=== PATIENT | female | born 1940 | race Caucasian/White ===

== ENCOUNTER → 2017-05-31 14:41 | Outpatient (CLI) | payer MEDICARE, SELFPAY ==
--- NOTE | 2017-05-31 14:52 | XR_ITS ---
DEXA SCAN.-BONE DENSITY STUDY HIPS AND LUMBAR SPINE HISTORY: Postmenopausal female 76-year-old postmenopausal female low calcium intake. TECHNIQUE: DEXA scan hip and lumbar spine The most complete data summary and color graphic presentation of the today's ( and any prior ) DEXA findings are available in PACS. Definition and treatment guidelines included. COMPARISON: May 2014 =LUMBAR SPINE:== Levoscoliosis with hypertrophic changes most evident along the right margin of the L-spine at L 2/3 Overall lumbar spine with Normal bone density L1 vertebral body demonstrates the lowest T score -1.0 with BMD1.013 g/cm sq Overall mean lumbar L1-L4 T score -0.3 with BMD1.138 g/cm sq . Prior May 2014 DEXA the mean T score -0.8 with BMD was1.083g/cm sq Thus when comparing today's study to the prior exam there's been a 5.1% % increasing mean bone density at the lumbar spine. This studies appear fairly comparable visually. ==HIPS: == Overall normal bone density at hips Femoral neck density is best predictor of hip fracture risk . Right femoral neck demonstrates the lowest T score -1.1 with BMD0.891 g/cm sq . Averaging all regions yields today's overall Hip Mean T score -0.9 with BMD0.899 g/cm sq . Prior May 2014 DEXA overall hip T score -0.8 with mean BMD0.907 g/cm sq Thus this reflects a 0.9 % decrease in overall mean bone density at the hips in the interval. IMPRESSION========= 1. LUMBAR SPINE: Overall normal bone density lumbar spine with mean T score = -0.1 Borderline osteopenia at L1 with T score is = -1.0 Levoscoliosis. & Degenerative changes L-spine again noted. 2. HIPS: ... Overall Normal bone density at hips w/ T score = -0.9. Early osteopenia at right femoral neck noted T score = -1.1 WHO criteria for post-menopausal, Women: Normal: T-score at or above -1 SD Osteopenia: T-score between -1 and -2.5 SD Osteoporosis: T-score at or below -2.5 SD
--- NOTE | 2017-05-31 14:53 | MM_ITS ---
MM Dig screening mamm BI w/CAD CAD Screening ORDERING PHYSICIAN : Vishal Waldron MD PATIENT AGE: 76 years GENDER: Female INDICATION: Routine screening no hormones no new complaints noncontributory family history. Previous cyst aspiration both breast COMPARISON Bilateral mammogram studies from May 2014, November 2010 20 TECHNIQUE: Standard CC and MLO images were obtained. R2 CAD reviewed. FINDINGS: Inhomogeneous Moderate breast density . But stable mild asymmetry. Prior films are helpful and supportive areas of asymmetry of remain stable . Vascular calcifications bilaterally RIGHT BREAST: Areas of density superior right breast is been noted and stable since 2010 . No significant new findings. LEFT BREAST:Mild asymmetry again noted but adequate stable with no significant new findings overall. IMPRESSION: . No significant interval change. . Bilateral follow-up in one year recommended and would be encouraged BI-RADS Category: 2 Benign Finding(s) RECOMMENDED FOLLOW-UP: 1YR - 1 YEAR FOLLOW-UP (A letter has been sent to the patient regarding results of the study.)
== END ==
PROVIDERS: Family Provider Family Medicine; PCP Family Medicine; Visit Provider Family Medicine
DX: M85.89 Other specified disorders of bone density and structure, multiple sites (principal); Z12.31 Encounter for screening mammogram for malignant neoplasm of breast
CPT/HCPCS: 77067; 77080

== ENCOUNTER → 2018-06-27 08:44 | Outpatient (CLI) | payer MEDICARE, SELFPAY ==
--- NOTE | 2018-06-27 08:47 | MM_ITS ---
MM Dig screening mamm BI w/CAD ORDERING PHYSICIAN : Vishal Waldron MD PATIENT AGE: 77 years GENDER: Female COMPARISON: Previous bilateral mammogram studies, May 2017, May 2014,, November 07 March 2005 Left breast ultrasound December 2010 INDICATION: ITS.Routine screening mammogram No hormones. No new complaints. Previous cyst aspiration both breasts. TECHNIQUE: Standard CC and MLO images were obtained. R2 CAD reviewed. Additional nipple profile MLO view included, helpful FINDINGS: . There is a moderately dense tissue particularly in the retroareolar region on on with a moderate density tissue extending through the central portion of both breasts. Mild ductal prominence retroareolar region noted on previous left breast ultrasound from 2010. A would note that Mammography slightly decreased sensitivity in breast of this heterogeneous moderately dense character. Prior films are very helpful with today's study.. Would also note Ultrasound can be a useful compliment/augment mammography in breast of this character. If any palpable areas or asymmetry arise then would recommend such- however I see no discrete new areas of concern on today's mammogram . Minimal vascular calcifications in both breast but no suspicious microcalcifications . RIGHT BREAST: Long-standing area of density at the superior right breast 12 o'clock position which appears stable since 2018. Also no significant change when compared to 2008, and 2006 mammogram. Initially question possibly slightly more dense on the initial MLO view- but there but there are additional MLO views including the nipple profile MLO view in which this density appears to dissipate & compatible with multiple previous studies. It also appears similar on the cc view. Given its long-standing stability follow-up would be adequate LEFT BREAST:Stable appearance with no significant new features. Stable scattered areas of asymmetric density. Follow-up in one year. IMPRESSION: ......... . No new findings of significant concern. Stable areas of density bilaterally. Bilateral follow-up in one year recommended and should be emphasized/encouraged even in this age patient Areas of moderately dense breast tissue particularly retroareolar regions yield slight decreased sensitivity mammography If any palpable areas arise ultrasound be useful augment/compliment to mammography in breast of this character BI-RADS Category: 2 Benign Finding(s) RECOMMENDED FOLLOW-UP: 1YR - 1 YEAR FOLLOW-UP (A letter has been sent to the patient regarding results of the study.)
== END ==
PROVIDERS: PCP Family Medicine; Visit Provider Family Medicine
DX: Z12.31 Encounter for screening mammogram for malignant neoplasm of breast (principal)
CPT/HCPCS: 77067

== ENCOUNTER → 2019-08-30 13:14 | Outpatient (CLI) | payer MEDICARE, SELFPAY ==
--- NOTE | 2019-08-30 13:27 | XR_ITS ---
PROCEDURE: XR DEXA AXIAL SKELETON CLINICAL HISTORY: OSTEOPENIA Postmenopausal COMPARISON: No exams were available for comparison FINDINGS: The total right hip BMD is 0.846 grams/centimeter squared with a t-score of -0.8. The femoral neck is 0.708 grams/centimeter sq with a T-score -1.3. The total left hip BMD is 0.761 grams/centimeter squared with a t-score of -1.5. The femoral neck is 0.733 grams/centimeter sq with a T-score -1.0. Lumbar spine: Again noted is moderate levo scoliotic curvature. The average BMD L1 through L4 is 0.991 grams/centimeter sq with a T-score -0.5. The T-score at the L4 level is -1.0 is the same as the last exam IMPRESSION: Lumbar spine T-score is basically unchanged from the previous exam with overall T-score being normal but borderline osteopenia at the L4 level. The bilateral hips are both in the osteopenia range representing a slight decrease in BMD from the previous exam. Dictated by: Dr. Jovan Garduno MD 08/31/2019 09:[address] Jovan Garduno MD in [place] 08/31/2019 09:11
--- NOTE | 2019-08-30 13:27 | MM_ITS ---
PROCEDURE: MM DIG SCREENING MAMM BI W/CAD Digital Breast Tomosynthesis Included CLINICAL INDICATION: SCREENING There is a history of breast cancer in the patient's mother. There has been previous cyst aspirations in each breast. COMPARISON: [facility] MM Dig screening mamm BI w/CAD from 05/31/2017 [facility] MM Dig screening mamm BI w/CAD from 06/27/2018 XR DEXA AXIAL SKELETON from 08/30/2019 TECHNIQUE: Standard CC and MLO images and 3D Tomosynthesis was obtained. R2 CAD reviewed. FINDINGS: Prominent somewhat heterogenic fibroglandular densities are seen in the central portions of both breasts. There is moderate diffuse arterial calcification in each breast. There are stable nodular densities in each breast. There are scattered benign-appearing microcalcifications in each breast. There are fatty replaced nodes in both axilla. There is no suspicious lesion and no suspicious microcalcifications. IMPRESSION: Diffusely dense parenchymal pattern consistent with diffuse fibrocystic change BI-RAD Category: 2 Benign Finding(s) FOLLOW-UP: 1YR 1 Year Follow-up (A letter has been sent to the patient regarding results of the study.) Dictated by: Dr. Jovan Garduno MD 09/02/2019 14:[address] Jovan Garduno MD in [place] 09/02/2019 14:51
== END ==
PROVIDERS: PCP Family Medicine; Visit Provider Family Medicine
DX: Z12.31 Encounter for screening mammogram for malignant neoplasm of breast (principal); M85.89 Other specified disorders of bone density and structure, multiple sites
CPT/HCPCS: 77063; 77067; 77080

== ENCOUNTER → 2020-10-16 10:19 | Outpatient (CLI) | payer MEDICARE, MEDICAID, SELFPAY ==
--- NOTE | 2020-10-16 10:25 | MM_ITS ---
PROCEDURE: MM DIG SCREENING MAMM BI W/CAD Digital Breast Tomosynthesis Included CLINICAL INDICATION: SCREENING COMPARISON: [facility] MM Dig screening mamm BI w/CAD from 06/27/2018 MG XR DEXA AXIAL SKELETON from 08/30/2019 MG MM DIG SCREENING MAMM BI W/CAD from 08/30/2019 TECHNIQUE: Standard CC and MLO images and 3D Tomosynthesis was obtained. R2 CAD reviewed. FINDINGS: Average to dense fibroglandular tissue. Bilateral benign-appearing nodules and calcifications. Inverted nipples. No suspicious appearing mass, malignant-appearing microcalcification, architectural distortion, or skin thickening. IMPRESSION: Benign findings. No significant change with no evidence of malignancy BI-RAD Category: 2 Benign Finding FOLLOW-UP: 1 YR 1 Year Follow-up (A letter has been sent to the patient regarding results of the study.) Dictated by: Albino Valladares MD 10/23/2020 08:31 Albino Valladares MD in [place] 10/23/2020 08:31
== END ==
PROVIDERS: PCP Family Medicine; Visit Provider Family Medicine
DX: Z12.31 Encounter for screening mammogram for malignant neoplasm of breast (principal)
CPT/HCPCS: 77063; 77067

== ENCOUNTER → 2021-11-24 09:07 | Outpatient (CLI) | payer MEDICARE, MEDICAID, SELFPAY ==
--- NOTE | 2021-11-24 09:15 | MM_ITS ---
PROCEDURE INFORMATION: Exam: MG Bilateral Screening 3D Mammography Exam date and time: 11/24/2021 9:17 AM Age: 80 years old Clinical indication: Screening examination. Her mother had breast cancer in her 50s. TECHNIQUE: Imaging protocol: Bilateral Screening tomosynthesis and 2D mammography including computer-aided detection (CAD) when performed. COMPARISON: 1. MG MM DIG SCREENING MAMM BI W/CAD 10/16/2020 10:41 AM 2. MG MM DIG SCREENING MAMM BI W/CAD 08/30/2019 1:29 PM 3. MG [facility] MM Dig screening mamm BI w/CAD 06/27/2018 9:03 AM 4. MG [facility] MM Dig screening mamm BI w/CAD 05/31/2017 3:10 PM FINDINGS: MAMMOGRAPHY: Breast composition: There are scattered areas of fibroglandular density. Mass: No suspicious mass. Architectural distortion: None. Calcifications: No suspicious calcifications. Asymmetric density: None. Skin thickening: None. Axillary adenopathy: None. Other: Bilateral prominent dilated retroareolar ducts, no significant change. IMPRESSION: No mammographic evidence of malignancy. Annual screening is recommended unless otherwise clinically indicated. ASSESSMENT: BI-RADS Category 2: Benign
--- NOTE | 2021-11-24 09:16 | XR_ITS ---
FINAL REPORT TECHNIQUE: Bone densitometry calculations of the lumbar spine and left hip were obtained. CLINICAL HISTORY: post menopausal FINDINGS: DEXA BONE DENSITY AXIAL SKELETON Using L1-4, the bone mineral density of the spine is 1.057 g/cm2, corresponding to T-score of 0.1. Using the left hip, the bone mineral density of the femoral neck is 0.758 g/cm2, corresponding to a T-score of -1.5. NOTE: T-score: Standard deviation compared with peak bone mass of young adult mean. *Following the recommendations of the International Society of Bone densitometry, classification of hip BMD is based on the lower of two T-scores; total hip or femoral neck. IMPRESSION: Diminished bone mineral density of the left hip consistent with osteopenia. FRAX 10 year fracture risk is 2.7% for a hip fracture and 12% for a major osteoporotic fracture. Normal bone mineral density of the lumbar spine. Reviewed, Interpreted and Dictated by Carol Olmedo MD Transcribed by Onelia Pace Authenticated and [facility]
== END ==
PROVIDERS: PCP Family Medicine; Visit Provider Family Medicine
DX: Z12.31 Encounter for screening mammogram for malignant neoplasm of breast (principal); Z78.0 Asymptomatic menopausal state
CPT/HCPCS: 77063; 77067; 77080

== ENCOUNTER 2024-07-26 09:10 | Outpatient (CLI) | payer MEDICARE, SELFPAY ==
--- OUTSIDE RECORDS SUMMARY | 2024-07-26 09:13 | XMS_ITS ---
Author Organization Unknown Vital Signs BpStanding BpSitting BpSupine Date Temperature HeartRate Weight Hei ght Spo2 Respiration Bmi HeadCircumference FieldCount TimeRecorded NeckCircumferen ce WaistCircumference Pulse 120/80 01/23 00:00 :00 97.6 60 131,3.2 0 5,6 21.1 7 6 06/05/2024 10:00:00 134/82 06/22 00:00 :00 97.4 63 136,9.6 0 5,6 22.0 5 6 06/05/2024 13:30:00 146/80 12/23 00:00 :00 97.7 69 138,3.2 0 5,6 22.3 0 6 06/05/2024 13:45:00 128/70 06/15 00:00 :00 97.7 60 140,6.4 0 5,6 22.6 6 6 06/05/2024 10:45:00 142/86 10/30 00:00 :00 98.1 63 139,9.6 0 5,6 22.5 3 6 06/05/2024 14:00:00 134/80 07/20 00:00 :00 98.4 72 144,3.2 0 5,6 23.2 7 6 06/05/2024 14:50:00
--- NOTE | 2024-07-26 09:16 | XR_ITS ---
FINAL REPORT TECHNIQUE: Bone densitometry calculations of the lumbar spine and left hip were obtained. CLINICAL HISTORY: SCREENING COMPARISON: 11/24/2021 FINDINGS: Using L1-4, the bone mineral density of the spine is 1.078 g/cm2, corresponding to T-score of 0.3. Using the left hip, the bone mineral density of the femoral neck is 0.724 g/cm2, corresponding to a T-score of -1.8. Using the right hip, the bone mineral density of the femoral neck is 0.722 g/cm?, corresponding to a T-score of -1.1. NOTE: T-score: Standard deviation compared with peak bone mass of young adult mean. *Following the recommendations of the International Society of Bone densitometry, classification of hip BMD is based on the lower of two T-scores; total hip or femoral neck. IMPRESSION: Diminished bone mineral density of the bilateral hips consistent with osteopenia. Normal bone mineral density of the lumbar spine. Reviewed, Interpreted and Dictated by Jose Mckeon MD Transcribed by Daja Wyatt Authenticated and [facility]
--- NOTE | 2024-07-26 09:17 | MM_ITS ---
PROCEDURE INFORMATION: Exam: MG Bilateral Screening 3D Mammography Exam date and time: 07/26/2024 9:40 AM Age: 83 years old Clinical indication: Screening examination TECHNIQUE: Imaging protocol: Bilateral Screening tomosynthesis and 2D mammography including computer-aided detection (CAD) when performed. COMPARISON: 1. MG MM DIG SCREENING MAMM BI W/CAD 11/24/2021 9:17 AM 2. MG MM DIG SCREENING MAMM BI W/CAD 10/16/2020 10:41 AM FINDINGS: MAMMOGRAPHY: Breast composition: There are scattered areas of fibroglandular density. Mass: No suspicious masses. Architectural distortion: None. Calcifications: No suspicious calcifications. Asymmetric density: None. Skin thickening: None. Axillary adenopathy: None. IMPRESSION: No mammographic evidence of malignancy. Annual screening is recommended unless otherwise clinically indicated. ASSESSMENT: BI-RADS Category 1: Negative.
== END 2024-07-26 23:59 | disposition home or self-care (01) ==
LOC: RAD 09:12
PROVIDERS: PCP Family Medicine; Visit Provider Family Medicine
DX: Z12.31 Encounter for screening mammogram for malignant neoplasm of breast (principal); R92.323 Mammographic fibroglandular density, bilateral breasts; M85.852 Other specified disorders of bone density and structure, left thigh; M85.851 Other specified disorders of bone density and structure, right thigh; M81.0 Age-related osteoporosis without current pathological fracture
CPT/HCPCS: 77063; 77067; 77080